=== PATIENT | male | born 1980 | race Two or more races ===

== ENCOUNTER 2021-04-21 12:54 | Inpatient (IN) | payer BC, OTHER ==
[2021-04-21] MEDS ORDERED: ONDANSETRON 4 MG/2 ML VIAL IVPB ONE (13:19)
[2021-04-21] MEDS ORDERED: SODIUM CHLORIDE 1,000 ML IV ONE (13:19)
[2021-04-21] MEDS ORDERED: MECLIZINE HCL 25 MG TABLET (FP) PO ONE (13:19)
[2021-04-21 13:47] VITALS: BMI 29.6
[2021-04-21 14:04] LABS: BASO % 0.3 % (0-2.0); EOS % 0.2 % (0-4.5); HEMATOCRIT 49.1 % (35.4-49); HEMOGLOBIN 16.2 GM/dL (11.7-16.9); LYMPH % 33.9 % (8-40); MCH 30.4 pg (25.7-33.7); MEAN PLT VOLUME 10.9 fl (7.5-11.1); MONO % 4.4 % (3.8-10.2); NEUT % 61.2 % (42.8-82.8); PLATELET COUNT 141 10^3/uL (134-434); RBC 5.33 M/mm3 (4.00-5.60); RDW 13.5 % (11.9-15.9)
[2021-04-21 14:30] LABS: CHLORIDE 106 mmol/L (98-107); SODIUM 138 mmol/L (136-145)
[2021-04-21 14:33] LABS: CALCIUM 9.2 mg/dL (8.5-10.1)
[2021-04-21 14:34] LABS: ALBUMIN 4.4 g/dl (3.4-5.0); ANION GAP 7 MMOL/L (8-16); BLOOD UREA NITROGEN 16.8 mg/dL (7-18); CO2 25 mmol/L (21-32); GLUCOSE,RANDOM 136 mg/dL (74-106); MAGNESIUM 2.3 mg/dL (1.8-2.4)
[2021-04-21 14:37] LABS: CREATININE 1.1 mg/dL (0.55-1.3); SGOT/AST 29 U/L (15-37); SGPT/ALT 43 U/L (13-61)
[2021-04-21 14:40] LABS: ALK PHOS 87 U/L (45-117)
[2021-04-21] MEDS: SODIUM CHLORIDE 0.9% 500 ML INFUS.BAG IV ONE ×2 (16:23→17:39)
[2021-04-21] MEDS: METOCLOPRAMIDE HCL INJECTION 10 MG/2 ML VIAL IVPB ONE ×2 (16:23→17:39)
[2021-04-21] MEDS ORDERED: METOCLOPRAMIDE HCL INJECTION 10 MG/2 ML VIAL ONE (16:58)
[2021-04-21] MEDS ORDERED: diazePAM CARPU-JECT 10 MG/2 ML DISP.SYRIN IVPUSH ONE (17:20)
[2021-04-21] MEDS ORDERED: diazePAM CARPU-JECT 10 MG/2 ML DISP.SYRIN ONE (17:45)
[2021-04-21] MEDS ORDERED: DEXTROSE 5%-NORMAL SALINE 1,000 ML IV SCH (18:45)
[2021-04-21] MEDS ORDERED: predniSONE 20 MG TABLET (UD) ONE (20:04)
[2021-04-21] MEDS ORDERED: MECLIZINE HCL 25 MG TABLET (FP) ONE (20:04)
[2021-04-21] MEDS: predniSONE 20 MG TABLET (UD) PO SCH (20:07)
[2021-04-21] MEDS: MECLIZINE HCL 25 MG TABLET (FP) PO SCH ×2 (20:07→22:04)
[2021-04-21] MEDS: LORazepam 2 MG/ML SDV VIAL IVPUSH SCH (20:14)
[2021-04-21 21:41] LABS: URINE BARBITURATES NEGATIVE (NEGATIVE); URINE BENZODIAZEPINES NEGATIVE (NEGATIVE)
[2021-04-21 21:42] LABS: OPIATES, URI NEGATIVE (NEGATIVE); PHENCYCLIDINE,URINE NEGATIVE (NEGATIVE)
[2021-04-21 21:43] LABS: COCAINE, UR NEGATIVE (NEGATIVE); METHADONE, UR NEGATIVE (NEGATIVE); URINE AMPHETAMINES NEGATIVE (NEGATIVE)
[2021-04-21] MEDS: ONDANSETRON 4 MG/2 ML VIAL IVPUSH PRN (22:35)
[2021-04-21] MEDS: SODIUM CHLORIDE 1,000 ML IV SCH (22:35)
[2021-04-22] MEDS: LORazepam 2 MG/ML SDV VIAL IVPUSH SCH ×3 (02:58→17:21)
[2021-04-22] MEDS: SODIUM CHLORIDE 1,000 ML IV SCH ×4 (06:47→23:12)
[2021-04-22 06:50] LABS: BASO % 0.2 % (0-2.0); HEMATOCRIT 44.7 % (35.4-49); HEMOGLOBIN 15.1 GM/dL (11.7-16.9); LYMPH % 16.6 % (8-40); MCH 30.9 pg (25.7-33.7); MCHC 33.8 g/dl (32.0-35.9); MEAN CELL VOLUME 91.3 fl (80-96); MEAN PLT VOLUME 10.4 fl (7.5-11.1); MONO % 1.5 % (3.8-10.2); NEUT % 81.7 % (42.8-82.8); PLATELET COUNT 138 10^3/uL (134-434); RBC 4.89 M/mm3 (4.00-5.60); RDW 13.3 % (11.9-15.9); WHITE BLOOD COUNT 7.1 K/mm3 (4.0-10.0)
[2021-04-22] MEDS: ONDANSETRON 4 MG/2 ML VIAL IVPUSH PRN ×3 (06:50→23:12)
[2021-04-22 07:08] LABS: MAGNESIUM 2.2 mg/dL (1.8-2.4)
[2021-04-22 07:09] LABS: ALBUMIN 3.6 g/dl (3.4-5.0); BLOOD UREA NITROGEN 15.3 mg/dL (7-18)
[2021-04-22 07:12] LABS: CREATININE 0.8 mg/dL (0.55-1.3)
[2021-04-22 07:13] LABS: PHOSPHOROUS 3.9 mg/dL (2.5-4.9); TOT PROT 6.8 g/dl (6.4-8.2)
[2021-04-22 07:14] LABS: BILIRUBIN,TOTAL 0.7 mg/dL (0.2-1)
[2021-04-22] MEDS: predniSONE 20 MG TABLET (UD) PO SCH (09:39)
[2021-04-22] MEDS: MECLIZINE HCL 25 MG TABLET (FP) PO SCH ×4 (09:39→23:13)
[2021-04-22] MEDS: ENOXAPARIN NA (PORCINE) 40 MG/0.4 ML DISP.SYRIN SQ SCH (09:40)
[2021-04-23] MEDS: LORazepam 2 MG/ML SDV VIAL IVPUSH SCH ×3 (02:00→17:33)
[2021-04-23] MEDS: MECLIZINE HCL 25 MG TABLET (FP) PO SCH ×4 (06:31→23:03)
[2021-04-23 07:10] LABS: BASO % 0.4 % (0-2.0); EOS % 0.1 % (0-4.5); HEMATOCRIT 42.6 % (35.4-49); HEMOGLOBIN 13.9 GM/dL (11.7-16.9); LYMPH % 32.3 % (8-40); MCH 30.1 pg (25.7-33.7); MCHC 32.7 g/dl (32.0-35.9); MEAN CELL VOLUME 92.1 fl (80-96); MEAN PLT VOLUME 11.1 fl (7.5-11.1); MONO % 8.8 % (3.8-10.2); NEUT % 58.4 % (42.8-82.8); PLATELET COUNT 143 10^3/uL (134-434); RBC 4.63 M/mm3 (4.00-5.60); RDW 13.5 % (11.9-15.9); WHITE BLOOD COUNT 9.3 K/mm3 (4.0-10.0)
[2021-04-23] MEDS: SODIUM CHLORIDE 1,000 ML IV SCH ×2 (07:20→16:05)
[2021-04-23 07:29] LABS: BLOOD UREA NITROGEN 14.8 mg/dL (7-18); CALCIUM 8.6 mg/dL (8.5-10.1)
[2021-04-23 07:32] LABS: CREATININE 1.1 mg/dL (0.55-1.3)
[2021-04-23] MEDS: ENOXAPARIN NA (PORCINE) 40 MG/0.4 ML DISP.SYRIN SQ SCH (09:42)
[2021-04-23] MEDS: predniSONE 20 MG TABLET (UD) PO SCH (09:42)
[2021-04-24] MEDS: LORazepam 2 MG/ML SDV VIAL IVPUSH SCH ×2 (01:27→10:10)
[2021-04-24] MEDS: SODIUM CHLORIDE 1,000 ML IV SCH (03:09)
[2021-04-24] MEDS: MECLIZINE HCL 25 MG TABLET (FP) PO SCH ×2 (05:31→12:31)
[2021-04-24] MEDS: predniSONE 20 MG TABLET (UD) PO SCH (10:09)
[2021-04-24] MEDS: ENOXAPARIN NA (PORCINE) 40 MG/0.4 ML DISP.SYRIN SQ SCH (10:10)
[2021-04-24 10:14] VITALS: BP 136/87; PULSE 57; TEMP 98.1
== END 2021-04-24 13:11 | disposition home or self-care (01) | DRG 149 ==
LOC: JER 12:54 → JERBED 17:33 → J4S 22:24
DX: H83.02 Labyrinthitis, left ear (principal); R11.2 Nausea with vomiting, unspecified; R00.1 Bradycardia, unspecified; H81.10 Benign paroxysmal vertigo, unspecified ear; H83.09 Labyrinthitis, unspecified ear; F41.9 Anxiety disorder, unspecified; R68.0 Hypothermia, not associated with low environmental temperature; H55.00 Unspecified nystagmus
CPT/HCPCS: 36415; 70450-TC; 70551-TC; 71045-TC-FY; 80048; 80053; 80061; 80307; 82550; 82553; 82607; 82746; 83036; 83721; 83735; 84100; 84443; 84484; 85025; 86780; 93005; 93010; 99285-25; C9803; U0003; U0005